=== PATIENT | male | born 1945 | race Caucasian/White ===

== ENCOUNTER 2016-07-22 14:07 | Inpatient (IN) ==
[2016-07-22] MEDS ORDERED: Ondansetron 4 MG/2 ML VIAL IVP ONE (14:43)
[2016-07-22] MEDS ORDERED: 0.9 % Sodium Chloride 1,000 ML IVC ONE (14:43)
--- NOTE | 2016-07-22 14:48 | Emergency Department Note ---
Disposition Clinical Impression: Hypokalemia, Colitis Diarrhea Qualifiers: Diarrhea type: unspecified type Qualified Code(s): R19.7 - Diarrhea, unspecified Disposition: Admitted As Inpatient Condition: Fair Referrals: Bahman Herman CNP [Primary Care Provider] - Forms: ED Satisfaction Letter Time of Disposition: 18:39 Nausea/Vomiting/Diarrhea HPI - General Chief complaint: ED Nausea/Vomiting/Diarrhea Stated complaint: S/P surgery, not feeling good Time Seen by Provider: 07/22/16 14:34 Source: patient Limitations: no limitations Nursing Notes Reviewed: Yes Vital Signs Reviewed: Yes - History of Present Illness HPI Narrative: 70-year-old male who comes in status post a bilateral hernia repair 6 days ago with persistent diarrhea and nausea vomiting not able to keep anything down. Patient was seen at outside facility on Saturday had a CT scan it was negative for acute findings. All the Dr. Bryson surgery this morning and he was concerned that possibly could be appendicitis versus a colon infection and was sent here for further evaluation. Pt Subjective Complaint: nausea, vomiting, diarrhea Onset (ago): day(s) Description of emesis: watery Description of Diarrhea: water Associated Abdominal Pain: Yes If pain, Location of pain: diffuse Severity: moderate Quality: aching Consistency: constant Improves with: nothing Worsens with: nonthing Context: recent surgery/procedure - Related Data Home Medications Medication Instructions Recorded Confirmed Doxazosin [Cardura] 4 mg PO DAILY 07/17/16 07/20/16 Lisinopril [Zestril] 10 mg PO DAILY 07/17/16 07/20/16 Multivitamin [One Daily Essential] 1 tab PO DAILY 07/17/16 07/20/16 [place]-3/Dha/Epa/Fish Oil [Fish Oil 1,000 mg PO DAILY 07/17/16 07/20/16 1,000 mg Softgel] Previous Rx's Medication Instructions Recorded OxyCODONE/APAP 10/325 [Percocet 1 each PO Q6HR PRN #39 tablet 07/17/16 10/325 MG] Ondansetron ODT [Zofran ODT] 4 mg SL Q6HR #10 tab.rapdis 07/20/16 Allergies Allergy/AdvReac Type Severity Reaction Status Date / Time acetaminophen [From Percocet] AdvReac Hallucinati Verified 07/22/16 14:21 ng Oxycodone [From Percocet] Awilda Hatchinati Verified 07/22/16 14:21 ng All systems ED: reviewed and negative except as stated. Constitutional: Denies: fever, chills, weakness, weight change Eyes: Denies: eye pain, eye discharge, vision change ENT ED: Denies: ear pain, throat pain, dental pain, hearing loss, epistaxis, congestion, dysphagia Cardiovascular: Denies: chest pain, palpitations, dyspnea on exertion, edema, syncope Respiratory: Denies: cough, dyspnea, wheezes, hemoptysis, stridor Gastrointestinal: Reports: abdominal pain, nausea, vomiting, diarrhea. Denies: constipation, hematemesis, melena, hematochezia Genitourinary: Denies: urgency, dysuria, frequency, hematuria Musculoskeletal: Denies: back pain, neck pain, arthralgia, myalgia Integumentary: Denies: rash, abrasion, lesions Neurological: Denies: headache, weakness, numbness, paresthesias, confusion, abnormal gait, vertigo Psychiatric: Denies: anxiety, depression, suicidal thoughts, homicidal thoughts , auditory hallucinations, visual hallucinations Endocrine: Denies: fatigue Hematological/Lymphatic: Denies: easy bleeding, easy bruising Allergic/Immunologic: Denies: facial swelling, urticaria Past Medical History - Past Medical History Medical history: Reports: other Surgical history: Reports: other Psychiatric history: Reports: no psych history - Social History Smoking Status: Never smoker Smokeless Tobacco Status: No Alcohol use: Reports: none Drug use: Reports: none Physical Exam - General Limitations: no limitations General appearance: alert, in no apparent distress - Head Head exam: atraumatic, normocephalic, normal inspection - Eye Eye exam: Present: normal appearance, PERRL, EOMI - ENT ENT exam: normal exam, normal oropharynx, mucous membranes moist - Chest Chest inspection: Present: normal inspection - Respiratory Respiratory exam: Present: normal lung sounds bilaterally - Cardiovascular Cardiovascular exam: Present: regular rate, normal rhythm, normal heart sounds - Abdominal Exam Abdominal exam: Present: soft, tenderness, other (Repair sites are clean and dry ). Absent: guarding, rebound Abdominal tenderness: Present: RLQ, LLQ - Extremities Exam Extremities exam: Present: normal inspection, full ROM. Absent: tenderness, pedal edema - Expanded Lower Extremity Exam Neurovascular/Tendon exam: Absent: motor deficit, sensory deficit, tendon deficit Gait: observed and normal - Back Exam Back exam: Present: normal inspection - Neurological Exam Neurological exam: Present: alert, oriented X3 - Psychiatric Psychiatric exam: Present: normal affect, normal mood - Skin Skin exam: Present: warm, dry, intact, normal color Course - Reevaluation(s) Reevaluation #1: 70-year-old male who comes in with diarrhea status post hernia surgery. His potassium is low CT scan shows possible colitis from an go ahead and admit him. Time: 18:58 - Consultations Consultation #1: Discussed with Dr. Bryson does not feel surgery related we'll admit to the hospitalist he will consult. Time: 18:35 Consultation #2: Discussed with Dr Gomez, admit. Time: 18:56 Vital Signs Temperature 97.3 F L 07/22/16 14:18 Pulse Rate 76 07/22/16 14:18 Respiratory Rate 16 07/22/16 14:18 Blood Pressure 141/84 07/22/16 14:18 O2 Sat by Pulse Oximetry 95 07/22/16 14:18 Temperature 97.3 F L 07/22/16 14:18 Pulse Rate 74 07/22/16 18:31 Respiratory Rate 18 07/22/16 18:31 Blood Pressure 134/78 07/22/16 18:31 O2 Sat by Pulse Oximetry 95 07/22/16 14:18 Oxygen Delivery Oxygen Delivery Room Air Nausea/Vomiting/Diarrhea - Lab Data Lab results reviewed: Yes I reviewed the patient's lab results. Result diagrams: 07/22/16 14:50 07/22/16 14:50 Lab Results 07/22/16 07/22/16 07/22/16 Range/Units 14:50 14:50 15:27 WBC 8.5 (4.3-11.1) K/mcL RBC 5.01 (4.19-5.50) M/mcL Hgb 14.9 (12.9-16.9) g/dL Hct 42.7 (37.5-50.1) % MCV 85.2 (83.0-100.0) fL MCH 29.7 (28.0-33.3) pg MCHC 34.9 (31.6-35.5) g/dL RDW 12.1 (11.5-14.5) % Plt Count 190 (140-400) K/mcL MPV 10.1 (9.4-12.4) fL Immature Gran % 0.1 (0-4) % Seg Neutrophils % 71.3 % Lymphocytes % 11.8 % Monocytes % 16.5 % Eosinophils % 0.2 % Basophils % 0.1 % Neutrophils # 6.1 (1.6-8.9) K/mcL Lymphocytes # 1.0 (0.6-4.6) K/mcL Monocytes # 1.4 H (0.0-1.3) K/mcL Eosinophils # 0.0 (0.0-0.6) K/mcL Basophils # 0.0 (0.0-0.2) K/mcL Immature Plt Fraction 6.7 H (1.1-6.1) % Sodium 136 (136-145) mEq/L Potassium 2.8 L (3.5-4.5) mEq/L Chloride 99 (98-109) mEq/L Carbon Dioxide 25 (19-29) mEq/L BUN 41 H D (8-26) mg/dL Creatinine 0.72 (0.72-1.25) mg/dL Est GFR ( Amer) > 60 (> 60) Est GFR (Non-Af Amer) > 60 (> 60) BUN/Creatinine Ratio 57 H (6-26) Glucose 124 H (70-99) mg/dL Calculated Osmolality 294 (280-300) Calcium 8.9 (8.6-10.8) mg/dL Urine Color (Yellow) Urine Clarity (Clear) Urine pH (5.0-8.0) pH Units Ur Specific [place] (1.010-1.025) Urine Protein (Neg-Trace) mg/dL Urine Glucose (UA) (Normal) mg/dL Urine Ketones (Negative) mg/dL Urine Blood (Negative) Urine Nitrite (Negative) Urine Bilirubin (Negative) Urine Urobilinogen (Normal) mg/dL Ur Leukocyte Esterase (Negative) Urine Microscopic RBC (0-3) per hpf Urine Microscopic WBC (0-3) per hpf Ur Squamous Epith Cells (None-Few) per lpf Urine Bacteria (None-Few) per hpf Hyaline Casts (None-Few) per lpf Ur Culture Indicated? (NO) Stl C. diff Tox B Gene Negative (Negative) 05/21/17 Range/Units 17:53 WBC (4.3-11.1) K/mcL RBC (4.19-5.50) M/mcL Hgb (12.9-16.9) g/dL Hct (37.5-50.1) % MCV (83.0-100.0) fL MCH (28.0-33.3) pg MCHC (31.6-35.5) g/dL RDW (11.5-14.5) % Plt Count (140-400) K/mcL MPV (9.4-12.4) fL Immature Gran % (0-4) % Seg Neutrophils % % Lymphocytes % % Monocytes % % Eosinophils % % Basophils % % Neutrophils # (1.6-8.9) K/mcL Lymphocytes # (0.6-4.6) K/mcL Monocytes # (0.0-1.3) K/mcL Eosinophils # (0.0-0.6) K/mcL Basophils # (0.0-0.2) K/mcL Immature Plt Fraction (1.1-6.1) % Sodium (136-145) mEq/L Potassium (3.5-4.5) mEq/L Chloride (98-109) mEq/L Carbon Dioxide (19-29) mEq/L BUN (8-26) mg/dL Creatinine (0.72-1.25) mg/dL Est GFR ( Amer) (> 60) Est GFR (Non-Af Amer) (> 60) BUN/Creatinine Ratio (6-26) Glucose (70-99) mg/dL Calculated Osmolality (280-300) Calcium (8.6-10.8) mg/dL Urine Color Yellow (Yellow) Urine Clarity Clear (Clear) Urine pH 7.0 (5.0-8.0) pH Units Ur Specific [place] > 1.030 H (1.010-1.025) Urine Protein Trace (Neg-Trace) mg/dL Urine Glucose (UA) Normal (Normal) mg/dL Urine Ketones 15 H (Negative) mg/dL Urine Blood Negative (Negative) Urine Nitrite Negative (Negative) Urine Bilirubin Negative (Negative) Urine Urobilinogen Normal (Normal) mg/dL Ur Leukocyte Esterase Negative (Negative) Urine Microscopic RBC 3-5 H (0-3) per hpf Urine Microscopic WBC 0-3 (0-3) per hpf Ur Squamous Epith Cells Moderate H (None-Few) per lpf Urine Bacteria None Seen (None-Few) per hpf Hyaline Casts None Seen (None-Few) per lpf Ur Culture Indicated? NO (NO) Stl C. diff Tox B Gene (Negative) - Radiology Data Radiology results reviewed: Yes I reviewed the patient's radiology results. Abdomen/Pelvis CT 07/22/16 17:00 IMPRESSION: Persistent mild dilation of small bowel loops with relative decompression of the ileum; no sharp tree caliber changes suspected. Findings are most suggestive of ileus. Partial small bowel obstruction cannot be completely excluded. Fluid throughout portions of the colon. There is suspected wall thickening of the right, descending and sigmoid colon. Correlation for infectious or inflammatory causes of colitis is recommended. Improved bibasilar atelectasis. D/ / Jocelyn Diaz Cha, MD / Jocelyn Diaz Cha, MD Interpreting Provider: Jocelyn Diaz Cha, MD
[2016-07-22 14:59] LABS: Basophils % 0.1 %; Eosinophils % 0.2 %; Hematocrit 42.7 % (37.5-50.1); Hemoglobin 14.9 g/dL (12.9-16.9); Immature Granulocytes % 0.1 % (0-4); Immature Platelets 6.7 % (1.1-6.1); Lymphocytes % 11.8 %; Mean Corpuscular HGB Conc 34.9 g/dL (31.6-35.5); Mean Corpuscular Hemoglobin 29.7 pg (28.0-33.3); Mean Corpuscular Volume 85.2 fL (83.0-100.0); Mean Platelet Volume 10.1 fL (9.4-12.4); Monocytes # 1.4 K/mcL (0.0-1.3); Monocytes % 16.5 %; Neutrophils # 6.1 K/mcL (1.6-8.9); Platelet Count 190 K/mcL (140-400); Red Blood Count 5.01 M/mcL (4.19-5.50); Red Cell Distribution Width 12.1 % (11.5-14.5); Segmented Neutrophils % 71.3 %
[2016-07-22 15:11] LABS: BUN/Creatinine Ratio 57 (6-26); Blood Urea Nitrogen 41 mg/dL (8-26); Calcium 8.9 mg/dL (8.6-10.8); Carbon Dioxide 25 mEq/L (19-29); Chloride 99 mEq/L (98-109); Glucose 124 mg/dL (70-99); Osmolality,Calculated 294 (280-300); Potassium 2.8 mEq/L (3.5-4.5); Sodium 136 mEq/L (136-145); eGFR For African Americans > 60 (> 60); eGFR For Non-African Americans > 60 (> 60)
[2016-07-22] MEDS ORDERED: *HR* Morphine 2 MG/ML SYRINGE IVP ONE (15:28)
[2016-07-22 18:03] LABS: Bilirubin,Urine Negative (Negative); Blood,Urine Negative (Negative); Clarity,Urine Clear (Clear); Color,Urine Yellow (Yellow); Glucose,Urine (UA) Normal (Normal); Ketones,Urine 15 mg/dL (Negative); Leukocyte Esterase,Urine Negative (Negative); Nitrite,Urine Negative (Negative); Protein,Urine Trace mg/dL (Neg-Trace); Specific Gravity,Urine > 1.030 (1.010-1.025); Urobilinogen,Urine Normal (Normal)
[2016-07-22 18:05] LABS: Bacteria,Urine None Seen per hpf (None-Few); Hyaline Casts,Urine None Seen per lpf (None-Few); Squamous Epithelial Cell,Urine Moderate per lpf (None-Few); WBC,Urine 0-3 per hpf (0-3)
[2016-07-22] MEDS ORDERED: MetroNIDAZOLE 500 MG/100 ML 500 MG/100 ML BAG IVPB ONE (18:34)
[2016-07-22] MEDS ORDERED: *HR* Morphine 2 MG/ML SYRINGE IVP PRN (20:15)
[2016-07-22] MEDS ORDERED: Naloxone 0.4 MG/ML INJ IVP PRN (20:15)
[2016-07-22 20:27] LABS: Magnesium 2.2 mg/dL (1.6-2.6)
[2016-07-22] MEDS: Ondansetron 4 MG/2 ML VIAL IVP PRN (20:54)
[2016-07-22] MEDS: 0.9 % Sodium Chloride 1,000 ML IVC SCH (20:54)
--- NOTE | 2016-07-22 21:16 | Internal Med History&Physical ---
<Pradip Interiano - Last Filed: 07/22/16 21:45> Date of Encounter: 07/22/16 Time of Encounter: 21:07 Assessment and Plan (1) Colitis Current visit: Yes Status: Acute Patient has evidence of colitis on CT scan which is new from a CT scan 2 days ago. Patient is postop day 5 from bilateral hernia repair. Most likely related to infection however ischemia cannot be totally included however it appears unlikely as the patient does not have significant abdominal pain or does not appear acutely ill as would be expected and ischemic colitis. No peritoneal signs evident. We will fluid hydrate the patient, place on antibiotics. C. difficile test was negative, will check full GI panel for infectious causes. We will keep the patient nothing by mouth overnight with the possibility of feeding the patient in the morning if he feels up to it. (2) Hypokalemia Current visit: Yes Status: Acute Potassium 2.8 on presentation. Likely related to diarrhea and poor by mouth intake. No EKG changes noted. Will replace with IV potassium and continue to monitor. Mag was normal at 2.2. (3) Inguinal hernia Current visit: Yes Status: Acute Postop day 5. Incision sites appear to be healing well, no evidence of infection at incision sites. Patient does have some residual soreness is improving. Qualifiers: Obstruction and gangrene presence: without obstruction or gangrene Laterality: bilateral Recurrence: non-recurrent Qualified Code(s): K40.20 - Bilateral inguinal hernia, without obstruction or gangrene, not specified as recurrent (4) Hypertension Current visit: Yes Status: Acute Stable at this time. Continue home medications. Qualifiers: Hypertension type: essential hypertension Qualified Code(s): I10 - Essential (primary) hypertension (5) DVT prophylaxis Current visit: Yes Status: Acute EPCDs Internal Medicine - H&P: HPI Chief complaint: Diarrhea Admitted From: Emergency Dept Plans for Post Hospital Care: Home History of present illness: Mr. Bashir is a 70 year old male with history of hypertension and recent bilateral inguinal hernia repair presents with diarrhea. Patient underwent bilateral inguinal hernia repair by Dr. Bryson on 07/17/2016. The patient states the he had a couple episodes of vomiting in the 2 days post procedure but none since then. Patient does report diarrhea with 7-8 loose watery bowel movements daily since his surgery. He denies melena hematochezia or hematemesis. Patient states that he has had a poor appetite and only been able to drink water or sprite, he has not been able to eat. He does report abdominal pain in his lower quadrant site of surgery. He denies fever, chills, chest pain, shortness of breath, dysuria, lower extremity swelling. Past Med Surg Social Fam HX - Past Medical History Medical history: other Psychiatric history: no psych history - Past Surgical History Surgical History: other - Social History Smoking Status: Never smoker Smokeless Tobacco Status: No Alcohol use: none Drug use: none Internal Medicine - H&P: Meds Doxazosin [Cardura] 4 mg PO DAILY 07/17/16 [History] Lisinopril [Zestril] 10 mg PO DAILY 07/17/16 [History] Multivitamin [One Daily Essential] 1 tab PO DAILY 07/17/16 [History] [place]-3/Dha/Epa/Fish Oil [Fish Oil 1,000 mg Softgel] 1,000 mg PO DAILY 07/17/16 [History] Ondansetron ODT [Zofran ODT] 4 mg SL Q6HR #10 tab.rapdis 07/20/16 [Rx] Allergies acetaminophen [From Percocet] Adverse Reaction (Verified 07/22/16 14:21) Hallucinating Oxycodone [From Percocet] Adverse Reaction (Verified 07/22/16 14:21) Hallucinating All Systems PM: A 10-system review of systems was performed and is negative for pertinent findings except as documented above in the HPI. - Constitutional Constitutional: weight loss, no chills, no fever(s) - EENT Eyes: no blurry vision, no change in vision Nose, mouth and throat: no sinus pain, no sinus pressure, no sore throat - Cardiovascular Cardiovascular ROS IM: no chest pain, no dyspnea, no edema, no palpitations, no syncope - Respiratory Respiratory: no cough, no chest congestion, no excessive phlegm production, no change in phlegm color - Gastrointestinal Gastrointestinal: abdominal pain, change in bowel habits, diarrhea, loose stools , nausea, vomiting, no hematemesis, no hematochezia, no melena - Genitourinary Genitourinary ROS male: no dysuria, no hematuria - Neurological Neurological ROS: no dizziness, no focal weakness, no frequent falls, no headache(s), no numbness, no tingling - Endocrine Endocrine IM: no polydipsia, no polyphagia, no polyuria - Constitutional Vitals: Temp Pulse Resp BP Pulse Ox 98.3 F 58 20 136/72 93 07/22/16 20:59 07/22/16 20:59 07/22/16 20:59 07/22/16 20:59 07/22/16 20:59 General appearance: Present: A&O X 3, pleasant, no acute distress - Head Head exam: Present: atraumatic, normal inspection, normocephalic - Eye Eye exam: Present: EOMI, PERRL - ENT ENT exam: Present: mucous membranes dry - Respiratory Respiratory exam: Present: CTAB. Absent: rales, rhonchi, wheezes - Cardiovascular Cardiovascular exam: Present: RRR. Absent: gallop, rubs, systolic murmur - GI/Abdominal GI/Abdominal exam: Present: hypoactive bowel sounds, soft, tenderness (Lower quadrants bilaterally). Absent: firm, guarding, rebound, rigid Additional comments: Patient has multiple small incision sites that are healing well with no evidence of infection. - Extremities Exam Extremities exam: Present: warm. Absent: pedal edema, tenderness - Neurological Exam Neurological exam: Present: alert, CN II-XII intact, oriented X3, no focal deficits - Skin Skin exam: Present: dry, intact, warm Internal Med - H&P Results - Labs CBC & Chem 7: 07/22/16 14:50 07/22/16 14:50 <Elida Núñez - Last Filed: 07/23/16 00:03> Date of Encounter: 07/22/16 Assessment and Plan (1) Ileus Current visit: Yes Status: Acute Likely due to diarrhea and hypokalemia. Keep NPO and start clear liquids in the AM. (2) Abdominal pain Current visit: Yes Status: Acute Likely postoperative versus secondary to colitis. Supportive care. Check lipase. Start incentive spirometer. Qualifiers: Abdominal location: generalized Qualified Code(s): R10.84 - Generalized abdominal pain Internal Medicine - H&P: HPI History of present illness: Mr. Bashir is a 70 year old male Past Med Surg Social Fam HX - Family History Father Living Status: Cause of : Stroke Mother Living Status: Cause of : DM Hx Family Endocrine Disorder: Yes (DM) All Systems PM: A 10-system review of systems was performed and is negative for pertinent findings except as documented above in the HPI. - Constitutional Vitals: Temp Pulse Resp BP Pulse Ox 97.7 F 57 18 133/68 94 07/22/16 23:46 07/22/16 23:46 07/22/16 23:46 07/22/16 23:46 07/22/16 23:46 Internal Med - H&P Results - Labs CBC & Chem 7: 07/22/16 14:50 07/22/16 14:50 - Attending Attestation I performed history and physical examination of the patient and discussed management with the Resident. I reviewed the Residents note and agree with documented findings and plan of care. 70 Y/M with h/o hypertension and recent bilateral inguinal hernia repair on , presents with diarrhea. Reports diarrhea with 7-8 loose watery bowel movements daily since his surgery. He denies melena hematochezia or hematemesis. Reports abdominal pain in Generalized. O/E: Cardiac: Regular rate and rhythm. Lungs clear to auscultation. Abdomen: Diffusely tender. Bowel sounds present. Imaging results and labs reviewed. C diff toxin and UA negative. A/P: Colitis: Infectious versus ischemic: Patient is empirically started on ciprofloxacin and metronidazole. Stool cultures pending. Supportive care Abdominal pain: Likely postoperative versus secondary to colitis. Supportive care. Check lipase. Start incentive spirometer. Possible ileus: Likely due to diarrhea and hypokalemia. Keep NPO and start clear liquids in the AM. Abdomen/Pelvis CT 07/22/16 17:00 IMPRESSION: Persistent mild dilation of small bowel loops with relative decompression of the ileum; no sharp tree caliber changes suspected. Findings are most suggestive of ileus. Partial small bowel obstruction cannot be completely excluded. Fluid throughout portions of the colon. There is suspected wall thickening of the right, descending and sigmoid colon. Correlation for infectious or inflammatory causes of colitis is recommended. Improved bibasilar atelectasis.
[2016-07-22 21:31] LABS: Adenovirus F 40/41 PCR Not detected (Not detect); Astrovirus PCR Not detected (Not detect); C.difficile Toxin A/B by PCR Not detected (Not detect); Campylobacter by PCR Not detected (Not detect); Cryptosporidium by PCR Not detected (Not detect); Cyclospora cayetanensis PCR Not detected (Not detect); E. coli O157 by PCR Not detected (Not detect); Entamoeba histolytica PCR Not detected (Not detect); Enteroaggregative E.coli(EAEC) Not detected (Not detect); Enteropathogenic E.coli(EPEC) Not detected (Not detect); Enterotoxigenic E.coli (ETEC) Not detected (Not detect); Giardia lamblia PCR Not detected (Not detect); Norovirus GI/GII PCR Not detected (Not detect); Plesiomonas shigelloides PCR Not detected (Not detect); Rotavirus A PCR Not detected (Not detect); Salmonella PCR Not detected (Not detect); Sapovirus PCR Not detected (Not detect); Shig/EnteroinvasiveE coli EIEC Not detected (Not detect); Shigalike tox-prod E coli STEC Not detected (Not detect); Vibrio PCR Not detected (Not detect); Vibrio cholerae PCR Not detected (Not detect); Yersinia enterocolitica PCR Not detected (Not detect)
[2016-07-22] MEDS: Melatonin 3 MG TABLET PO PRN (23:35)
[2016-07-23] MEDS: 0.9 % Sodium Chloride 1,000 ML IVC SCH (05:20)
[2016-07-23] MEDS: MetroNIDAZOLE 500 MG/100 ML 500 MG/100 ML BAG IVPB SCH ×3 (05:20→21:19)
[2016-07-23 06:10] LABS: Basophils % 0.2 %; Eosinophils # 0.1 K/mcL (0.0-0.6); Eosinophils % 0.8 %; Hematocrit 36.2 % (37.5-50.1); Immature Granulocytes % 0.2 % (0-4); Lymphocytes # 1.1 K/mcL (0.6-4.6); Lymphocytes % 17.8 %; Mean Corpuscular HGB Conc 35.4 g/dL (31.6-35.5); Mean Corpuscular Hemoglobin 30.5 pg (28.0-33.3); Mean Corpuscular Volume 86.4 fL (83.0-100.0); Mean Platelet Volume 11.2 fL (9.4-12.4); Monocytes % 16.4 %; Neutrophils # 4.1 K/mcL (1.6-8.9); Platelet Count 154 K/mcL (140-400); Red Blood Count 4.19 M/mcL (4.19-5.50); Red Cell Distribution Width 12.2 % (11.5-14.5); Segmented Neutrophils % 64.6 %
[2016-07-23 06:20] LABS: Hemoglobin 12.8 g/dL (12.9-16.9)
[2016-07-23 06:25] LABS: BUN/Creatinine Ratio 48 (6-26); Calcium 7.9 mg/dL (8.6-10.8); Carbon Dioxide 25 mEq/L (19-29); Chloride 105 mEq/L (98-109); Glucose 98 mg/dL (70-99); Osmolality,Calculated 290 (280-300); Potassium 2.9 mEq/L (3.5-4.5); Sodium 137 mEq/L (136-145); eGFR For African Americans > 60 (> 60); eGFR For Non-African Americans > 60 (> 60)
[2016-07-23 06:26] LABS: Blood Urea Nitrogen 29 mg/dL (8-26)
--- NOTE | 2016-07-23 06:48 | General Surgery Consult Note ---
Date of Encounter: 07/23/16 Time of Encounter: 06:48 Assessment and Plan (1) Ileus Current Visit: Yes Status: Acute I explained to the patient that I personally reviewed the CT scan images and report. I do not think that the surgical procedures related to his abdominal symptoms in terms of injury to the bowel however I am concerned that he may have some type of viral cause behind his symptoms. I agree with the IV antibiotics and IV fluid hydration. He states that he feels better now than he did yesterday and continued IV fluid hydration and monitoring of his potassium levels or replacement will help with his ileus and recovery. From a surgical standpoint his incisions look well and I do not think that there is any problem related to the mesh or the hernia repair. (2) Hypokalemia Current Visit: Yes Status: Acute potassium level of 2.8 yesterday and was replaced in the emergency room. Recommend continue monitoring of the potassium level and monitoring of the patient's diarrhea. C. difficile has been noted to be negative. Discussed with patient that his potassium level is also important with respect to GI function. History of Present Illness Consult date: 07/23/16 Reason for consult: abdominal pain (Discomfort with nausea, vomiting, and diarrhea.) Requesting physician: Linwood Laguna History of present illness: Patient is a 70-year-old male with a past medical history significant for hypertension and bilateral inguinal hernias who underwent a robot-assisted bilateral inguinal hernia repair 6 days ago states that approximately 24 hours after his surgery he started having symptoms of nausea with abdominal pain and diarrhea. He started to have abdominal distention and difficulty keeping foods down. He presented himself to the emergency room a day or 2 later and had an abdominal x-ray which showed an ileus. He contacted my office and we ordered for a CT scan of the abdomen and pelvis on 07/20/2016 which verified evidence of an ileus with no mass effect and no evidence of pelvic hematoma or abnormality related to the hernia repair. Because of his continued inability to keep foods down with worsening diarrhea he presented himself to [facility] emergency room for further evaluation. Past Med Surg Social Fam HX - Past Medical History Medical history: other Psychiatric history: no psych history - Past Surgical History Surgical History: other (Umbilical hernia repair with mesh; Robot BIH repair with mesh) - Social History Smoking Status: Never smoker Smokeless Tobacco Status: No Alcohol use: none Drug use: none - Family History Father Living Status: Cause of : Stroke Mother Living Status: Cause of : DM Hx Family Endocrine Disorder: Yes (DM) Medications and Allergies Doxazosin [Cardura] 4 mg PO DAILY 07/17/16 [History] Lisinopril [Zestril] 10 mg PO DAILY 07/17/16 [History] Multivitamin [One Daily Essential] 1 tab PO DAILY 07/17/16 [History] [place]-3/Dha/Epa/Fish Oil [Fish Oil 1,000 mg Softgel] 1,000 mg PO DAILY 07/17/16 [History] Ondansetron ODT [Zofran ODT] 4 mg SL Q6HR #10 tab.rapdis 07/20/16 [Rx] Allergies acetaminophen [From Percocet] Adverse Reaction (Verified 07/22/16 14:21) Hallucinating Oxycodone [From Percocet] Adverse Reaction (Verified 07/22/16 14:21) Hallucinating Review of Systems All systems PM: reviewed and no additional remarkable complaints except as stated All systems PM: A 10-system review of systems was performed and is negative for pertinent findings except as documented above in the HPI. General Surgery Exam Initial Vital Signs Temp Pulse Resp BP Pulse Ox 97.3 F L 76 16 141/84 95 07/22/16 14:18 07/22/16 14:18 07/22/16 14:18 07/22/16 14:18 07/22/16 14:18 - Eyes PERRL, normal ocular movement - Respiratory normal expansion, normal respiratory effort, clear to auscultation - Cardiovascular Cardiovascular exam: Present: RRR, no murmurs/rubs/gallops - Abdomen Abdomen general surgery: Present: bowel sounds present, soft, tender (mild discomfort with palpation. Incisions CDI. No ecchymosis noted in the bilateral groins. Edema or mass effect palpated in the groins.) - Neurologic Present: CN 2-12 grossly intact - Musculoskeletal Present: other (No clubbing, cyanosis, or edema.) Exam Initial Vital Signs Temp Pulse Resp BP Pulse Ox 97.3 F L 76 16 141/84 95 07/22/16 14:18 07/22/16 14:18 07/22/16 14:18 07/22/16 14:18 07/22/16 14:18 Results - Labs 07/23/16 05:15 07/23/16 05:15 Abnormal lab results Hgb 12.8 g/dL (12.9-16.9) L D 07/23/16 05:15 Hct 36.2 % (37.5-50.1) L 07/23/16 05:15 Immature Plt Fraction 6.7 % (1.1-6.1) H 07/22/16 14:50 Potassium 2.9 mEq/L (3.5-4.5) L 07/23/16 05:15 BUN 29 mg/dL (8-26) H D 07/23/16 05:15 Creatinine 0.60 mg/dL (0.72-1.25) L 07/23/16 05:15 BUN/Creatinine Ratio 48 (6-26) H 07/23/16 05:15 Calcium 7.9 mg/dL (8.6-10.8) L 07/23/16 05:15 Ur Specific [place] > 1.030 (1.010-1.025) H 07/22/16 17:53 Urine Ketones 15 mg/dL (Negative) H 07/22/16 17:53 Urine Microscopic RBC 3-5 per hpf (0-3) H 07/22/16 17:53 Ur Squamous Epith Cells Moderate per lpf (None-Few) H 07/22/16 17:53 Diabetes panel 07/23/16 Range/Units 05:15 Sodium 137 (136-145) mEq/L Potassium 2.9 L (3.5-4.5) mEq/L Chloride 105 (98-109) mEq/L Carbon Dioxide 25 (19-29) mEq/L BUN 29 H D (8-26) mg/dL Creatinine 0.60 L (0.72-1.25) mg/dL Glucose 98 (70-99) mg/dL Calcium 7.9 L (8.6-10.8) mg/dL Calcium panel 07/23/16 Range/Units 05:15 Calcium 7.9 L (8.6-10.8) mg/dL Pituitary panel 07/23/16 Range/Units 05:15 Sodium 137 (136-145) mEq/L Potassium 2.9 L (3.5-4.5) mEq/L Chloride 105 (98-109) mEq/L Carbon Dioxide 25 (19-29) mEq/L BUN 29 H D (8-26) mg/dL Creatinine 0.60 L (0.72-1.25) mg/dL Glucose 98 (70-99) mg/dL Calcium 7.9 L (8.6-10.8) mg/dL Adrenal panel 07/23/16 Range/Units 05:15 Sodium 137 (136-145) mEq/L Potassium 2.9 L (3.5-4.5) mEq/L Chloride 105 (98-109) mEq/L Carbon Dioxide 25 (19-29) mEq/L BUN 29 H D (8-26) mg/dL Creatinine 0.60 L (0.72-1.25) mg/dL Glucose 98 (70-99) mg/dL Calcium 7.9 L (8.6-10.8) mg/dL All other labs normal. - Imaging CT scan - abdomen: report reviewed, image reviewed (Evidence of dilated loops of small and large bowel consistent with ileus. Also concerned about thickening of the colon concerning for colitis.) Consult Discharge Plan - Plan Referrals: Bahman Herman, [employer] [Primary Care Provider] -
[2016-07-23 08:24] LABS: Lipase 23 Units/L (8-78)
--- NOTE | 2016-07-23 09:43 | Internal Med Progress Note ---
Date of Encounter: 07/23/16 Time of Encounter: 09:42 - Assessment and plan (1) Vomiting and diarrhea Current Visit: No Status: Acute Assessment and plan: Likely secondary to colitis and ileitis. We will treat this supportively with IV fluids, electrolyte repletion, IV Zofran and pain control. (2) Postoperative ileus Current Visit: No Status: Acute Assessment and plan: We will replete potassium and check magnesium level. (3) Hypokalemia Current Visit: No Status: Acute Assessment and plan: Oral and intravenous potassium chloride. (4) Diarrhea Current Visit: Yes Status: Acute Qualifiers: Diarrhea type: infectious Qualified Code(s): A09 - Infectious gastroenteritis and colitis, unspecified (5) Colitis Current Visit: Yes Status: Acute Assessment and plan: We will continue with Cipro and Flagyl. (6) DVT prophylaxis Current Visit: Yes Status: Acute Assessment and plan: Encourage ambulation 3 times a day. (7) Abdominal pain Current Visit: Yes Status: Acute Assessment and plan: Patient receiving IV morphine. We will continue with this as the patient is nothing by mouth. He is at high risk for morbidity and complications due to treatment with IV controlled substances. Qualifiers: Abdominal location: generalized Qualified Code(s): R10.84 - Generalized abdominal pain - Subjective Interval history: 07/23/2016: Patient presented to the hospital yesterday with diarrhea and abdominal pain. He was found to have colitis and ileus. He was admitted to the medical service. Today he reports , continued watery diarrhea, and smaller amounts compared to yesterday. He has had diarrhea ever since his hernia surgery 7 days ago and diffuse abdominal pain which has improved since yesterday. Denies fevers chills cough shortness of breath or chest pain. - Constitutional Vitals: Temp Pulse Resp BP Pulse Ox 97.7 F 54 16 149/74 95 07/23/16 07:24 07/23/16 07:24 07/23/16 07:24 07/23/16 07:24 07/23/16 07:24 General appearance: Present: A&O X 3, pleasant, no acute distress - Respiratory Respiratory exam: Present: CTAB. Absent: accessory muscle use, rales, rhonchi, wheezes - Cardiovascular Cardiovascular exam: Present: RRR, +S1, +S2. Absent: diastolic murmur, gallop, rubs, systolic murmur - GI/Abdominal GI/Abdominal exam: Present: normal bowel sounds, soft, no peritoneal signs. Absent: distended, tenderness Additional comments: Surgical incisions healing well - exam: Present: normal inspection, testicular tenderness. Absent: scrotal swelling, urethral discharge - Extremities Exam Extremities exam: Present: warm, radial pulses palpable and symetrical. Absent : calf tenderness, cyanotic, pedal edema - Skin Skin exam: Present: dry, intact Internal Medicine: Result - Labs CBC & Chem 7: 07/23/16 05:15 07/23/16 05:15 Labs: Short CBC 07/23/16 Range/Units 05:15 WBC 6.4 (4.3-11.1) K/mcL Hgb 12.8 L D (12.9-16.9) g/dL Hct 36.2 L (37.5-50.1) % Plt Count 154 (140-400) K/mcL Neutrophils # 4.1 (1.6-8.9) K/mcL BMP 07/23/16 05:15 Sodium 137 Potassium 2.9 L Chloride 105 Carbon Dioxide 25 BUN 29 H D Creatinine 0.60 L Glucose 98 Calcium 7.9 L Consult Discharge Plan - Plan Referrals: Bahman Herman, [facility] [Primary Care Provider] -
[2016-07-23] MEDS: 0.9 % Sodium Chloride w KCl 20 MEQ/1,000 ML MLS IVC SCH ×2 (09:56→18:10)
[2016-07-23] MEDS: Pantoprazole 40 MG VIAL IVP SCH (10:02)
[2016-07-23] MEDS: Potassium Chloride Elixir 20 MEQ/15 ML UDC PO SCH ×2 (10:03→21:19)
[2016-07-23 11:01] LABS: Magnesium 1.9 mg/dL (1.6-2.6)
[2016-07-23] MEDS: traMADol 50 MG TABLET PO PRN (13:06)
--- NOTE | 2016-07-23 17:06 | Electrocardiograph Report ---
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
[2016-07-24] MEDS: 0.9 % Sodium Chloride w KCl 20 MEQ/1,000 ML MLS IVC SCH ×2 (03:40→15:25)
[2016-07-24] MEDS: traMADol 50 MG TABLET PO PRN ×4 (03:40→21:33)
[2016-07-24] MEDS: MetroNIDAZOLE 500 MG/100 ML 500 MG/100 ML BAG IVPB SCH ×3 (05:20→21:34)
[2016-07-24 06:06] LABS: Basophils % 0.4 %; Eosinophils % 0.5 %; Hematocrit 35.1 % (37.5-50.1); Hemoglobin 12.3 g/dL (12.9-16.9); Immature Granulocytes % 0.2 % (0-4); Lymphocytes % 17.9 %; Mean Corpuscular Hemoglobin 30.1 pg (28.0-33.3); Mean Platelet Volume 10.4 fL (9.4-12.4); Monocytes # 0.9 K/mcL (0.0-1.3); Monocytes % 15.6 %; Neutrophils # 3.7 K/mcL (1.6-8.9); Platelet Count 143 K/mcL (140-400); Red Blood Count 4.08 M/mcL (4.19-5.50); Red Cell Distribution Width 12.2 % (11.5-14.5); Segmented Neutrophils % 65.4 %
[2016-07-24 06:16] LABS: BUN/Creatinine Ratio 31 (6-26); Calcium 7.7 mg/dL (8.6-10.8); Carbon Dioxide 25 mEq/L (19-29); Chloride 107 mEq/L (98-109); Glucose 105 mg/dL (70-99); Magnesium 1.7 mg/dL (1.6-2.6); Osmolality,Calculated 288 (280-300); Potassium 3.1 mEq/L (3.5-4.5); Sodium 138 mEq/L (136-145); eGFR For African Americans > 60 (> 60); eGFR For Non-African Americans > 60 (> 60)
[2016-07-24 06:20] LABS: Blood Urea Nitrogen 17 mg/dL (8-26)
[2016-07-24] MEDS: Pantoprazole 40 MG VIAL IVP SCH (09:21)
[2016-07-24] MEDS: Potassium Chloride Elixir 20 MEQ/15 ML UDC PO SCH ×2 (09:21→21:34)
[2016-07-24] MEDS ORDERED: Simethicone 80 MG TAB.CHEW PO PRN (16:47)
[2016-07-24] MEDS: Metoclopramide 10 MG/2 ML VIAL IVP SCH (17:04)
--- NOTE | 2016-07-24 18:03 | Internal Med Progress Note ---
Date of Encounter: 07/24/16 Time of Encounter: 15:00 - Assessment and plan (1) Vomiting and diarrhea Current Visit: No Status: Acute Assessment and plan: Likely secondary to colitis and ileitis. We will treat this supportively with IV fluids, electrolyte repletion, IV Zofran and pain control. (2) Postoperative ileus Current Visit: No Status: Acute Assessment and plan: We will replete potassium and check magnesium level. (3) Hypokalemia Current Visit: No Status: Acute Assessment and plan: 07/24/2016: Oral and intravenous potassium chloride. I will increase the IV potassium repletion to 40 mEq per 1000 mL normal saline (4) Diarrhea Current Visit: Yes Status: Acute Qualifiers: Diarrhea type: infectious Qualified Code(s): A09 - Infectious gastroenteritis and colitis, unspecified (5) Colitis Current Visit: Yes Status: Acute Assessment and plan: 07/24/2016: Making a slow symptomatic improvement. I will continue with Cipro and Flagyl. Advance diet slowly as tolerated. (6) DVT prophylaxis Current Visit: Yes Status: Acute Assessment and plan: Encourage ambulation 3 times a day. (7) Abdominal pain Current Visit: Yes Status: Acute Assessment and plan: Patient receiving IV morphine. We will continue with this as the patient is nothing by mouth. He is at high risk for morbidity and complications due to treatment with IV controlled substances. Qualifiers: Abdominal location: generalized Qualified Code(s): R10.84 - Generalized abdominal pain - Subjective Interval history: 07/24/2016: Patient reports improvement in his abdominal pain, he continues to have diarrhea albeit and smaller amount. Denies associated fevers and chills. Denies nausea and vomiting. 07/23/2016: Patient presented to the hospital yesterday with diarrhea and abdominal pain. He was found to have colitis and ileus. He was admitted to the medical service. Today he reports , continued watery diarrhea, and smaller amounts compared to yesterday. He has had diarrhea ever since his hernia surgery 7 days ago and diffuse abdominal pain which has improved since yesterday. Denies fevers chills cough shortness of breath or chest pain. - Constitutional Vitals: Temp Pulse Resp BP Pulse Ox 98 F 58 18 169/84 96 07/24/16 16:53 07/24/16 16:53 07/24/16 16:53 07/24/16 16:53 07/24/16 16:53 General appearance: Present: A&O X 3, pleasant, no acute distress - Respiratory Respiratory exam: Present: CTAB. Absent: accessory muscle use, rales, rhonchi, wheezes - Cardiovascular Cardiovascular exam: Present: RRR, +S1, +S2. Absent: diastolic murmur, gallop, rubs, systolic murmur - GI/Abdominal GI/Abdominal exam: Present: normal bowel sounds, soft, no peritoneal signs. Absent: distended, tenderness - Extremities Exam Extremities exam: Present: warm, radial pulses palpable and symetrical. Absent : calf tenderness, cyanotic, pedal edema - Skin Skin exam: Present: dry, intact Internal Medicine: Result - Labs CBC & Chem 7: 07/24/16 05:39 07/24/16 05:39 Labs: Short CBC 07/24/16 Range/Units 05:39 WBC 5.6 (4.3-11.1) K/mcL Hgb 12.3 L (12.9-16.9) g/dL Hct 35.1 L (37.5-50.1) % Plt Count 143 (140-400) K/mcL Neutrophils # 3.7 (1.6-8.9) K/mcL BMP 07/24/16 05:39 Sodium 138 Potassium 3.1 L Chloride 107 Carbon Dioxide 25 BUN 17 D Creatinine 0.54 L Glucose 105 H Calcium 7.7 L Consult Discharge Plan - Plan Referrals: Bahman Herman CNP [Primary Care Provider] - 07/31/16 3:40 pm
[2016-07-24] MEDS: 0.9 % Sodium Chloride w KCl 40 MEQ/1,000 ML MLS IVC SCH (19:20)
[2016-07-24] MEDS: Ondansetron 4 MG/2 ML VIAL IVP PRN (19:20)
[2016-07-24] MEDS: Melatonin 3 MG TABLET PO PRN (21:33)
[2016-07-25] MEDS: Metoclopramide 10 MG/2 ML VIAL IVP SCH ×5 (00:03→23:22)
[2016-07-25] MEDS: traMADol 50 MG TABLET PO PRN ×4 (03:52→23:22)
[2016-07-25] MEDS: MetroNIDAZOLE 500 MG/100 ML 500 MG/100 ML BAG IVPB SCH ×3 (05:19→20:50)
[2016-07-25 05:21] LABS: Basophils % 0.3 %; Eosinophils # 0.1 K/mcL (0.0-0.6); Hematocrit 35.6 % (37.5-50.1); Hemoglobin 12.6 g/dL (12.9-16.9); Immature Granulocytes % 0.2 % (0-4); Lymphocytes # 1.7 K/mcL (0.6-4.6); Lymphocytes % 28.1 %; Mean Corpuscular HGB Conc 35.4 g/dL (31.6-35.5); Mean Corpuscular Hemoglobin 31.1 pg (28.0-33.3); Mean Corpuscular Volume 87.9 fL (83.0-100.0); Mean Platelet Volume 11.2 fL (9.4-12.4); Monocytes # 0.9 K/mcL (0.0-1.3); Monocytes % 15.7 %; Neutrophils # 3.3 K/mcL (1.6-8.9); Platelet Count 130 K/mcL (140-400); Red Blood Count 4.05 M/mcL (4.19-5.50); Red Cell Distribution Width 12.4 % (11.5-14.5); Segmented Neutrophils % 54.7 %
[2016-07-25 05:40] LABS: BUN/Creatinine Ratio 14 (6-26); Blood Urea Nitrogen 8 mg/dL (8-26); Calcium 7.9 mg/dL (8.6-10.8); Carbon Dioxide 25 mEq/L (19-29); Chloride 106 mEq/L (98-109); Glucose 92 mg/dL (70-99); Osmolality,Calculated 284 (280-300); Potassium 3.8 mEq/L (3.5-4.5); Sodium 138 mEq/L (136-145); eGFR For African Americans > 60 (> 60); eGFR For Non-African Americans > 60 (> 60)
[2016-07-25] MEDS: Potassium Chloride Elixir 20 MEQ/15 ML UDC PO SCH ×2 (08:29→20:49)
[2016-07-25] MEDS: Pantoprazole 40 MG VIAL IVP SCH (08:30)
[2016-07-25] MEDS: 0.9 % Sodium Chloride w KCl 40 MEQ/1,000 ML MLS IVC SCH ×2 (08:30→20:50)
[2016-07-25] MEDS: Ondansetron 4 MG/2 ML VIAL IVP PRN (10:13)
--- NOTE | 2016-07-25 11:34 | General Surgery Progress Note ---
Date of Encounter: 07/25/16 Time of Encounter: 11:31 - Assessment and Plan (1) S/P bilateral inguinal hernia repair Current Visit: Yes Status: Acute POD #8 bilateral inguinal hernia repair with Dr. Bryson (2) Postoperative ileus Current Visit: No Status: Acute Reglan started yesterday and patient has significantly improved Passing flatus and having bowel movements Pain and bloating significantly improved Advance to full liquids (3) Hypokalemia Current Visit: No Status: Resolved Improved Management per hospitalist Subjective Patient reports: no new complaints, feels better, still having pain, pain is less, tolerating liquids well, voiding w/o difficulty, flatus, bowel movement, afebrile Objective Vital Signs - Last 8 Hours Temp Pulse Resp BP Pulse Ox 07/25/16 11:11 97.9 F 60 18 119/67 95 07/25/16 08:38 95 07/25/16 06:32 98.1 F 57 17 137/75 95 07/25/16 03:40 98.3 F 55 13 120/70 94 Intake and Output 07/24/16 07/25/16 07/25/16 23:59 07:59 15:59 Intake Total 300 / 300 1200 / 1200 360 / 360 Output Total 600 / 600 750 / 750 100 / 100 Balance -300 / -300 450 / 450 260 / 260 Intake: IV Fluids 300 / 300 200 / 200 KCl 40mEq in 0.9% Sodium 100 / 100 Chloride 40 meq In 1,000 ml @ 100 mls/hr IVC .Q10H [facility] Rx#:[id number] Cipro Premix 400 MG/200 200 / 200 ML 400 mg In 200 ml @ 200 mls/hr IVPB Q12H [facility] Rx# :[id number] Flagyl Premix 500 MG/100 100 / 100 100 / 100 ML 500 mg In 100 ml @ 100 mls/hr IVPB Q8H [facility] Rx#: [id number] Oral 0 / 0 1000 / 1000 360 / 360 Output: Urine 600 / 600 750 / 750 100 / 100 Other: Percent of Meal Consumed 0% Stool Size Small Stool Consistency liquid liquid Stool Color Brown Brown # Voids 1 # Bowel Movements 1 1 - General physical appearance well developed, well nourished, no distress - Eyes normal ocular movement - ENT normal mucosa, atraumatic, normocephalic - Neck Neck exam: trachea midline - Respiratory normal respiratory effort, clear to auscultation - Cardiovascular Cardiovascular exam: Present: RRR - Abdomen Abdomen: Present: bowel sounds present, soft, tender (expected post-operative tenderness) - Incision Incision: Present: clean and dry, intact - Neurologic CN 2-12 grossly intact - Musculoskeletal normal gait, normal posture - Psychiatric oriented to time, oriented to person, oriented to place, speech is normal, memory intact - Labs 07/25/16 03:49 07/25/16 03:49 Diabetes panel 07/25/16 Range/Units 03:49 Sodium 138 (136-145) mEq/L Potassium 3.8 (3.5-4.5) mEq/L Chloride 106 (98-109) mEq/L Carbon Dioxide 25 (19-29) mEq/L BUN 8 (8-26) mg/dL Creatinine 0.56 L (0.72-1.25) mg/dL Glucose 92 (70-99) mg/dL Calcium 7.9 L (8.6-10.8) mg/dL Calcium panel 07/25/16 Range/Units 03:49 Calcium 7.9 L (8.6-10.8) mg/dL Pituitary panel 07/25/16 Range/Units 03:49 Sodium 138 (136-145) mEq/L Potassium 3.8 (3.5-4.5) mEq/L Chloride 106 (98-109) mEq/L Carbon Dioxide 25 (19-29) mEq/L BUN 8 (8-26) mg/dL Creatinine 0.56 L (0.72-1.25) mg/dL Glucose 92 (70-99) mg/dL Calcium 7.9 L (8.6-10.8) mg/dL Adrenal panel 07/25/16 Range/Units 03:49 Sodium 138 (136-145) mEq/L Potassium 3.8 (3.5-4.5) mEq/L Chloride 106 (98-109) mEq/L Carbon Dioxide 25 (19-29) mEq/L BUN 8 (8-26) mg/dL Creatinine 0.56 L (0.72-1.25) mg/dL Glucose 92 (70-99) mg/dL Calcium 7.9 L (8.6-10.8) mg/dL Consult Discharge Plan - Plan Referrals: Bahman Herman CNP [Primary Care Provider] - 07/31/16 3:40 pm - Attending Attestation I examined this patient and my medical decision-making was reviewed with the GENERAL MAGISTRATE/PA/Advanced Practice Nurse/Resident Physician. I agree with the documented findings, disposition and treatment plan as described except to the extent set forth below.
--- NOTE | 2016-07-25 19:14 | Internal Med Progress Note ---
Date of Encounter: 07/25/16 Time of Encounter: 13:12 - Assessment and plan (1) Vomiting and diarrhea Current Visit: No Status: Acute Assessment and plan: Likely secondary to colitis and ileitis. We will treat this supportively with IV fluids, electrolyte repletion, IV Zofran and pain control. (2) Postoperative ileus Current Visit: No Status: Acute Assessment and plan: We will replete potassium and check magnesium level. (3) Hypokalemia Current Visit: No Status: Resolved Assessment and plan: 07/24/2016: Oral and intravenous potassium chloride. I will increase the IV potassium repletion to 40 mEq per 1000 mL normal saline (4) Diarrhea Current Visit: Yes Status: Acute Qualifiers: Diarrhea type: infectious Qualified Code(s): A09 - Infectious gastroenteritis and colitis, unspecified (5) Colitis Current Visit: Yes Status: Acute Assessment and plan: 07/25/2016: Continue with broad-spectrum IV antibiotics to cover gram-negative rods and anaerobes. Monitor clinically. Follow up temperature curve and WBC trend. Pain control with oxycodone. IV morphine for pain not controlled with oral medication. 07/24/2016: Making a slow symptomatic improvement. I will continue with Cipro and Flagyl. Advance diet slowly as tolerated. (6) DVT prophylaxis Current Visit: Yes Status: Acute (7) Abdominal pain Current Visit: Yes Status: Acute Qualifiers: Abdominal location: generalized Qualified Code(s): R10.84 - Generalized abdominal pain - Subjective Interval history: 07/25/2016: The patient reports right lower quadrant pain has significantly improved since yesterday. he continues to have diarrhea but no associated fever. 07/24/2016: Patient reports improvement in his abdominal pain, he continues to have diarrhea albeit and smaller amount. Denies associated fevers and chills. Denies nausea and vomiting. 07/23/2016: Patient presented to the hospital yesterday with diarrhea and abdominal pain. He was found to have colitis and ileus. He was admitted to the medical service. Today he reports , continued watery diarrhea, and smaller amounts compared to yesterday. He has had diarrhea ever since his hernia surgery 7 days ago and diffuse abdominal pain which has improved since yesterday. Denies fevers chills cough shortness of breath or chest pain. - Constitutional Vitals: Temp Pulse Resp BP Pulse Ox 98.4 F 60 17 106/64 95 07/25/16 14:25 07/25/16 14:25 07/25/16 14:25 07/25/16 14:25 07/25/16 14:25 General appearance: Present: A&O X 3, pleasant, no acute distress - Respiratory Respiratory exam: Present: CTAB. Absent: accessory muscle use, rales, rhonchi, wheezes - Cardiovascular Cardiovascular exam: Present: RRR, +S1, +S2. Absent: diastolic murmur, gallop, rubs, systolic murmur - GI/Abdominal GI/Abdominal exam: Present: normal bowel sounds, soft, no peritoneal signs. Absent: distended, tenderness - Extremities Exam Extremities exam: Present: warm, radial pulses palpable and symetrical. Absent : calf tenderness, cyanotic, pedal edema Internal Medicine: Result - Labs CBC & Chem 7: 07/25/16 03:49 07/25/16 03:49 Labs: Short CBC 07/25/16 Range/Units 03:49 WBC 6.0 (4.3-11.1) K/mcL Hgb 12.6 L (12.9-16.9) g/dL Hct 35.6 L (37.5-50.1) % Plt Count 130 L (140-400) K/mcL Neutrophils # 3.3 (1.6-8.9) K/mcL BMP 07/25/16 03:49 Sodium 138 Potassium 3.8 Chloride 106 Carbon Dioxide 25 BUN 8 Creatinine 0.56 L Glucose 92 Calcium 7.9 L Consult Discharge Plan - Plan Referrals: Bahman Herman C[employer] TECH[employer] TE[employer]ER [Primary Care Provider] - 07/31/16 3:40 pm
[2016-07-26] MEDS: MetroNIDAZOLE 500 MG/100 ML 500 MG/100 ML BAG IVPB SCH ×2 (04:24→12:35)
[2016-07-26] MEDS: traMADol 50 MG TABLET PO PRN ×2 (05:33→15:37)
[2016-07-26] MEDS: Metoclopramide 10 MG/2 ML VIAL IVP SCH ×2 (05:33→12:35)
[2016-07-26 05:42] LABS: Basophils % 0.3 %; Eosinophils # 0.1 K/mcL (0.0-0.6); Eosinophils % 0.8 %; Hematocrit 35.7 % (37.5-50.1); Hemoglobin 12.6 g/dL (12.9-16.9); Immature Granulocytes % 0.2 % (0-4); Lymphocytes # 1.3 K/mcL (0.6-4.6); Lymphocytes % 22.1 %; Mean Corpuscular HGB Conc 35.3 g/dL (31.6-35.5); Mean Corpuscular Hemoglobin 30.7 pg (28.0-33.3); Mean Corpuscular Volume 86.9 fL (83.0-100.0); Mean Platelet Volume 10.7 fL (9.4-12.4); Monocytes % 16.8 %; Neutrophils # 3.6 K/mcL (1.6-8.9); Platelet Count 137 K/mcL (140-400); Red Blood Count 4.11 M/mcL (4.19-5.50); Red Cell Distribution Width 12.3 % (11.5-14.5); Segmented Neutrophils % 59.8 %
[2016-07-26 06:01] LABS: BUN/Creatinine Ratio 8 (6-26); Calcium 8.4 mg/dL (8.6-10.8); Carbon Dioxide 28 mEq/L (19-29); Chloride 105 mEq/L (98-109); Glucose 106 mg/dL (70-99); Osmolality,Calculated 284 (280-300); Sodium 138 mEq/L (136-145); eGFR For African Americans > 60 (> 60); eGFR For Non-African Americans > 60 (> 60)
[2016-07-26 06:04] LABS: Blood Urea Nitrogen 5 mg/dL (8-26)
[2016-07-26] MEDS: 0.9 % Sodium Chloride w KCl 40 MEQ/1,000 ML MLS IVC SCH (09:56)
[2016-07-26] MEDS: Pantoprazole 40 MG VIAL IVP SCH (09:58)
[2016-07-26] MEDS: Potassium Chloride Elixir 20 MEQ/15 ML UDC PO SCH (09:58)
[2016-07-26 11:43] VITALS: BP 125/74
--- NOTE | 2016-07-26 17:54 | Discharge Summary ---
Date of Encounter: 07/26/16 Time of Encounter: 11:00 - Discharge Diagnosis (1) Vomiting and diarrhea Priority: Secondary Status: Inactive (2) Postoperative ileus Priority: Primary Status: Inactive (3) Hypokalemia Priority: Secondary Status: Inactive (4) Diarrhea Priority: Secondary Status: Acute Qualifiers: Diarrhea type: infectious Qualified Code(s): A09 - Infectious gastroenteritis and colitis, unspecified (5) Colitis Priority: Secondary Status: Acute (6) DVT prophylaxis Priority: Secondary Status: Acute (7) Abdominal pain Priority: Secondary Status: Acute Qualifiers: Abdominal location: generalized Qualified Code(s): R10.84 - Generalized abdominal pain (8) Hypertension Priority: Secondary Status: Acute Qualifiers: Hypertension type: essential hypertension Qualified Code(s): I10 - Essential (primary) hypertension (9) S/P bilateral inguinal hernia repair Priority: Secondary Status: Acute - Discharge Medications Prescriptions: Levofloxacin [Levaquin] 750 mg PO DAILY #5 tablet metroNIDAZOLE [Flagyl] 500 mg PO TID #15 tablet Potassium Chloride Elixir [Potassium Chloride] 20 meq PO DAILY 14 Days Simethicone [Gas-X] 80 mg PO TID PRN #30 tab.chew PRN Reason: Dyspepsia Home Medications: Doxazosin [Cardura] 4 mg PO DAILY 07/17/16 [History] Lisinopril [Zestril] 10 mg PO DAILY 07/17/16 [History] Multivitamin [One Daily Essential] 1 tab PO DAILY 07/17/16 [History] [place]-3/Dha/Epa/Fish Oil [Fish Oil 1,000 mg Softgel] 1,000 mg PO DAILY 07/17/16 [History] Ondansetron ODT [Zofran ODT] 4 mg SL Q6HR #10 tab.rapdis 07/20/16 [Rx] Levofloxacin [Levaquin] 750 mg PO DAILY #5 tablet 07/26/16 [Rx] Potassium Chloride Elixir [Potassium Chloride] 20 meq PO DAILY 14 Days 07/26/16 [Rx] Simethicone [Gas-X] 80 mg PO TID PRN #30 tab.chew 07/26/16 [Rx] metroNIDAZOLE [Flagyl] 500 mg PO TID #15 tablet 07/26/16 [Rx] Allergies/Adverse Reactions: Allergies acetaminophen [From Percocet] Adverse Reaction (Verified 07/22/16 14:21) Hallucinating Oxycodone [From Percocet] Adverse Reaction (Verified 07/22/16 14:21) Hallucinating Date of admission: 07/22/16 21:22 Primary care physician: Bahman Herman CNP - Patient Status Disposition: Home, Self-Care Condition: Fair Functional capacity at discharge: independent ambulation Overall status at discharge: patient is not back to baseline - Discharge Instructions Instructions: Potassium Chloride (By mouth), Simethicone (By mouth), Metronidazole (By mouth), Levofloxacin (By mouth), Ileus (DC) Follow Up With: Bahman Herman CNP [Primary Care Provider] - 07/31/16 3:40 pm Alex Bryson MD [Partnered Physician] - - Diet and Activity Activity: increase activity as tolerated, return to work once cleared by your PCP/specialist Diet: other (Full liquid diet, slowly advance as tolerated to your usual diet) Hospital course: Mr. Bashir is a 70 year old male with past medical history significant for essential hypertension and recent bilateral inguinal hernia repair who presented to the hospital for evaluation of abdominal pain nausea and vomiting. He also reported diarrhea. His abdominal pain was localized in the left lower quadrant. Initial imaging studies revealed findings consistent for colitis. The patient was admitted to the medical service and started on IV fluids, broad-spectrum IV antibiotics and maintained with nothing by mouth. General surgery was consulted and they ruled out any post surgical complication. We continue treatment with IV fluids and IV antibiotics and on day 2 of hospitalization he was able to tolerate a clear liquid diet which was advanced to full liquid diet. His vomiting and diarrhea had resolved. He will be discharged today and instructed to follow-up with his primary care physician and surgeon. He verbalizes understanding and agreement with the plan. - Time Spent with Patient Total time spent providing and/or coordinating discharge services: Greater than 30 minutes (I have spent 45 minutes coordinating this discharge) - Constitutional Vitals: Temp Pulse Resp BP Pulse Ox 98.5 F 69 16 125/74 93 07/26/16 11:41 07/26/16 11:41 07/26/16 11:41 07/26/16 11:41 07/26/16 11:41 General appearance: Present: A&O X 3, pleasant, no acute distress - Respiratory Respiratory exam: Present: CTAB. Absent: accessory muscle use, rales, rhonchi, wheezes - Cardiovascular Cardiovascular exam: Present: RRR, +S1, +S2. Absent: diastolic murmur, gallop, rubs, systolic murmur - GI/Abdominal GI/Abdominal exam: Present: normal bowel sounds, soft, no peritoneal signs. Absent: distended, tenderness
== END 2016-07-26 18:56 | disposition home or self-care (01) | DRG 394 ==
LOC: EMEROO 14:07 → 3ANU 14:07 → SUATTDRO 21:22
PROVIDERS: ADMIT Internal Medicine Sleep Medicine; ATTEND Internal Medicine